=== PATIENT | female | born 1940 ===

== ENCOUNTER 2020-10-02 22:02 | Emergency (ER) | payer SELFPAY ==
[~2020-10-02] VITALS: Ht 152.4 cm; Wt 70.0 kg
--- NOTE | 2020-10-02 22:09 | NUR ---
THIS IS AN 80F BIB EMS FOR DIZZINESS, PT DID NOT FALL, NO HEAD TRAUMA/ LOC. PER EMS PT WAS C/O DIZZINESS AND DAUGHTER CALLED EMS. PT IS BASELINE A/O X2 AND HAS HX OF ALTHEIMERS. PT CONNECTED TO ALL MONITORING VSS NADN.
[2020-10-02 22:53] LABS: BASOPHILS % (AUTO) 1 % (0-1); EOSINOPHILS % (AUTO) 5 % (1-7); LYMPHOCYTES % (AUTO) 22 % (22-44); MEAN CORPUSCULAR HEMOGLOBIN 32.1 pg (27.0-34.8); MEAN CORPUSCULAR HGB CONC 34.5 g/dL (32.4-35.8); MEAN PLATELET VOLUME 7.7 fL (7.4-10.4); MONOCYTES % (AUTO) 9 % (2-9); NEUTROPHILS % (AUTO) 63 % (42-75); PLATELET COUNT 258 x10^3/uL (130-400); RED BLOOD COUNT 4.21 x10^6/uL (3.82-5.3); RED CELL DISTRIBUTION WIDTH 14.2 % (9.6-15.2)
[2020-10-02 23:05] LABS: ALANINE AMINOTRANSFERASE 27 U/L (12-78); ALBUMIN 3.8 g/dL (3.4-5.0); ANION GAP 7 mmol/L (5-15); CALCIUM 8.6 mg/dL (8.5-10.1); CHLORIDE 103 mmol/L (98-107); CREATININE 1.05 mg/dL (0.55-1.02)
[2020-10-02 23:09] LABS: ALKALINE PHOSPHATASE 71 U/L (45-117); BILIRUBIN,TOTAL 0.4 mg/dL (0.2-1.0); TOTAL PROTEIN 8.3 g/dL (6.4-8.2); TROPONIN I < 0.015 ng/mL (0.000-0.045)
--- NOTE | 2020-10-02 23:20 | NUR ---
PT INCON OF URINE, PT PLACED ON PUREWICK AT THIS TIME FOR COMFORT AND SKIN PROTECTION.
--- NOTE | 2020-10-02 23:26 | NUR ---
DAUGHTER AT BEDSIDE FOR ASSIST IN HX
[2020-10-02 23:44] LABS: MICROSCOPIC AUTO
--- NOTE | 2020-10-03 00:47 | NUR ---
ERP TO BEDSIDE FOR EVAL Addendum: 10/03/20 at 0047 by [email or web address] POC DISCUSSION WITH PT AND DAUGHTER
--- NOTE | 2020-10-03 02:10 | NUR ---
BREAK RN: PT TO CT AT THIS TIME. NAD, NO CHANGE IN CONDITION, WCTM.
[2020-10-03] MEDS ORDERED: OMNIPAQUE 350 MG/ML, 150 ML BOTTLE ONE (02:30)
[2020-10-03 04:20] VITALS: BP 141/78
== END 2020-10-03 04:23 | disposition home or self-care (01) ==
LOC: ED 22:30
DX: R42 Dizziness and giddiness (principal); R41.82 Altered mental status, unspecified; I71.00 Dissection of unspecified site of aorta; I10 Essential (primary) hypertension; E11.9 Type 2 diabetes mellitus without complications; G30.9 Alzheimer's disease, unspecified; F02.80 Dementia in other diseases classified elsewhere, unspecified severity, without behavioral disturbance, psychotic disturbance, mood disturbance, and anxiety
CPT/HCPCS: 36415; 70450; 70498; 71275; 74175; 80053; 81001; 83605; 84484; 85025; 87077; 87086; 87186; 93005; 99285; Q9967